=== PATIENT | female | born 1985 | race Hispanic/Latino ===

== ENCOUNTER 2022-09-27 17:56 | Emergency (ER) | payer OTHER ==
[2022-09-27 18:27] LABS: Urine Blood Trace-intact (Negative); Urine Glucose Negative (Negative); Urine Protein 1+ (Negative); Urine Specific Gravity >=1.030 (1.005-1.030)
[2022-09-27 18:44] LABS: Urine Bacteria None Seen /HPF (<20); Urine Mucus Slight /HPF (None Seen)
[2022-09-27 19:28] LABS: Absolute Lymphocytes (CBC) 2.4 K/uL (0.7-4.9); Hematocrit 38.2 % (36.0-45.0); Lymphocytes % 30.2 % (15.3-44.8); MCV 91.8 fL (80-100); RBC Red Blood Cell Count 4.16 M/uL (3.86-4.86)
--- NOTE | 2022-09-27 19:28 | RAD REPORT ---
EXAM DESCRIPTION: CT - Abdomen Pelvis W Contrast - 09/27/2022 7:10 pm CLINICAL HISTORY: Abdominal pain COMPARISON: none. TECHNIQUE: Computed axial tomography of the abdomen pelvis was obtained. 100 cc Isovue-300 was admin istered intravenously. Oral contrast was not requested which limits evaluation of bowel and appendix All CT scans are performed using dose optimization technique as appropriate and may include automated exposure control or mA/KV adjustment according to patient size. FINDINGS: Fatty liver. Spleen, pancreas, adrenal and kidneys appear unremarkable. There is no evidence of diverticulitis. Normal appendix. No adnexal mass. Tiny umbilical hernia Mild gastric distention IMPRESSION: Mild gastric distention
[2022-09-27 19:38] LABS: Albumin 3.8 g/dL (3.4-5.0); Bilirubin Total 0.8 mg/dL (0.2-1.0); Potassium 3.5 mmol/L (3.5-5.1); Protein, Total 7.5 g/dL (6.4-8.2)
--- NOTE | 2022-09-27 19:43 | EDPHYS ---
Physician Documentation [facility] Name: Marilu Gallegos Age: 36 yrs Sex: Female : 1985 Arrival Date: 09/27/2022 Time: 17:59 Bed IW2 Private MD: ED Physician Rebel Burgos HPI: 09/27 18:18 This 36 yrs old Female presents to ER via Ambulatory with complaints of rn dysuria, Pelvic Pain. 18:18 The patient presents with urinary symptoms, dysuria, frequency. Onset: The rn symptoms/episode began/occurred 4 day(s) ago. Modifying factors: The symptoms are alleviated by nothing, the symptoms are aggravated by urinating. Associated signs and symptoms: Pertinent positives: dysuria, Pertinent negatives: fever, hematuria, vaginal bleeding, vaginal discharge. Severity of symptoms: At their worst the symptoms were mild, in the emergency department the symptoms are unchanged. The patient has not experienced similar symptoms in the past. The patient has not recently seen a physician. Pt reports dysuria, began 4 days ago, no fever, + suprapubic abd pressure, worse with urination, no hx of kidney stones, no vaginal bleeding or discharge. NO trauma. Denies . . 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 - Social history:: Smoking status: Patient denies any tobacco usage or history of. - Family history:: not pertinent. - Hospitalizations: : No recent hospitalization is reported. ROS: 18:18 Constitutional: Negative for fever, chills, and weight loss, Eyes: Negative for injury, rn pain, redness, and discharge, Cardiovascular: Negative for chest pain, palpitations, and edema, Respiratory: Negative for shortness of breath, cough, wheezing, and pleuritic chest pain, Abdomen/GI: + suprapubic abd discomfort Back: Negative for injury and pain, : + dysuria MS/Extremity: Negative for injury and deformity, Skin: Negative for injury, rash, and discoloration, Neuro: Negative for headache, weakness, numbness, tingling, and seizure. Exam: 18:18 Constitutional: This is a well developed, well nourished patient who is awake, alert, rn and in no acute distress. Head/Face: Normocephalic, atraumatic. Cardiovascular: Regular rate and rhythm. No pulse deficits. Respiratory: No increased work of breathing, no retractions or nasal flaring. Abdomen/GI: soft, mild suprapubic tenderness, no RLQ or LLQ tenderness Skin: Warm, dry MS/ Extremity: Pulses equal, no cyanosis Neuro: Awake and alert, GCS 15 Vital Signs: 18:10 BP 116 / 80; Pulse 90; Resp 18; Temp 97.7; Pulse Ox 100% ; Weight 99.79 kg (R); Height ko1 5 ft. 6 in. (167.64 cm); 19:30 BP 123 / 68; Pulse 85; Resp 18; Temp 98; Pulse Ox 100% on R/A; Pain 4/10; pf1 18:10 Body Mass Index 35.51 (99.79 kg, 167.64 cm) ko1 MDM: 18:13 Patient medically screened. rn 18:29 Differential diagnosis: appendicitis, ectopic , endometriosis, kidney stone, rn nonspecific abdominal pain, ovarian cyst, urinary tract infection. ED course: UA obtained initially to try and confirm UTI given suprapubic pain and dysuria, was not convincing of UTI, micro sent, and added blood and CT to rule out other causes of acute lower abd pain. Explained further w/u to patient. . 19:40 Data reviewed: vital signs, nurses notes. Consideration of Admission/Observation jr11 Escalation of care including admission/observation considered. but pain control, no abdominal emergency identified on CT. I considered the following discharge prescriptions or medication management in the emergency department Pain Medications: At this time, prescription pain medications are not recommended. Independent interpretation of the following test(s) in the Emergency Department CT Scan: My interpretation is no free fluids or air . Care significantly affected by the following chronic conditions: Obesity. Care significantly affected by the following Social Determinants of Health: Poor access to healthcare and/or lack of insurance. 09/27 18:18 Order name: Urine Culture rn 09/27 18:18 Order name: Urine Microscopic Only; Complete Time: 19:06 rn 09/27 18:27 Order name: CBC with Diff; Complete Time: 19:40 rn 09/27 18:27 Order name: CMP; Complete Time: 19:40 rn 09/27 18:28 Order name: Urine --Ancillary (enter results) eb 09/27 18:28 Order name: Urine Dipstick-Ancillary; Complete Time: 19:06 EDMS 09/27 18:18 Order name: Urine Dipstick-Ancillary (obtain specimen); Complete Time: 18:32 rn 09/27 18:18 Order name: Urine Test (obtain specimen); Complete Time: 18:32 rn 09/27 18:27 Order name: CT Abd/Pelvis - IV Contrast Only; Complete Time: 19:32 rn 09/27 18:27 Order name: IV Saline Lock; Complete Time: 18:56 rn 09/27 18:27 Order name: Labs collected and sent; Complete Time: 18:56 rn 09/27 18:29 Order name: Urine --Ancillary; Complete Time: 19:06 EDMS 09/27 19:38 Order name: CREATININE WHOLE BLOOD; Complete Time: 19:40 EDMS Administered Medications: No medications were administered Disposition Summary: 09/27/22 19:42 Discharge Ordered Location: Home [facility] Condition: Stable [facility] Diagnosis - Abdominal pain, Generalized jr11 - UTI/ Urinary tract infection, site not specified jr Followup: jr - With: Caden Stuart DO - When: 2 - 3 days - Reason: Re-evaluation by your physician Discharge Instructions: - Discharge Summary Sheet jr11 - Urinary Tract Infection, Adult [facility] Forms: - Medication Reconciliation Form jr11 - Thank You Letter jr11 - Antibiotic Education jr11 - Prescription Opioid Use jr Prescriptions: - Cephalexin 500 mg Oral Capsule - take 1 capsule by ORAL route every 8 hours for 10 days; 30 capsule; Refills: 0, jr11 Product Selection Permitted - Pyridium 200 mg Oral Tablet - take 1 tablet by ORAL route every 8 hours for 3 days; 9 tablet; Refills: 0, jr11 Product Selection Permitted Signatures: Dispatcher [employer] EDTN Antony Antonio MD MD rn Rosillo, Jose, MD MD jr11 Anabelle Pabon, RN RN ko1
--- NOTE | 2022-09-27 19:43 | ER ---
Nurse's Notes [facility] Name: Marilu Gallegos Age: 36 yrs Sex: Female : 1985 Arrival Date: 09/27/2022 Time: 17:59 Bed IW2 Private MD: Diagnosis: Abdominal pain, Generalized;UTI/ Urinary tract infection, site not specified Presentation: 09/27 18:09 Chief complaint:. ko1 18:10 Chief complaint: Patient states: pain in abdomen and when peeing. Coronavirus screen: ko1 Vaccine status: Patient reports receiving the 2nd dose of the covid vaccine. At this time, the client does not indicate any symptoms associated with coronavirus-19. Ebola Screen: No symptoms or risks identified at this time. Initial Sepsis Screen: Does the patient meet any 2 criteria? No. Patient's initial sepsis screen is negative. Does the patient have a suspected source of infection? No. Patient's initial sepsis screen is negative. Risk Assessment: Do you want to hurt yourself or someone else? Patient reports no desire to harm self or others. Onset of symptoms was September 24, 2022 at 09:00. 18:10 Method Of Arrival: Ambulatory ko1 18:10 Acuity: AMEENA 3 ko1 Triage Assessment: 18:13 General: Appears in no apparent distress. distressed, comfortable, Behavior is calm, ko1 cooperative, appropriate for age. Pain: Complains of pain in suprapubic area. 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 - Social history:: Smoking status: Patient denies any tobacco usage or history of. - Family history:: not pertinent. - Hospitalizations: : No recent hospitalization is reported. Screenin:00 [facility] ED Fall Risk Assessment (Adult) History of falling in the last 3 months, pf1 including since admission No falls in past 3 months (0 pts) Confusion or Disorientation No (0 pts) Intoxicated or Sedated No (0 pts) Impaired Gait No (0 pts) Mobility Assist Device Used No (0 pt) Altered Elimination No (0 pt) Score/Fall Risk Level 0 - 2 = Low Risk Oriented to surroundings, Maintained a safe environment, Educated pt \T\ family on fall prevention, incl call for assistance when getting out of bed, Assessed \T\ reinforced patient's understanding of fall precautions, Provided non-skid footwear, Hourly rounding (assess needs \T\ fall precautionary measures) done, Used ambulatory aids as needed (educated on \T\ assisted with), Used gait belt as appropriate. 19:00 Abuse screen: Denies threats or abuse. Nutritional screening: No deficits noted. pf1 Tuberculosis screening: No symptoms or risk factors identified. Assessment: 19:00 General: Appears in no apparent distress. comfortable, obese, well groomed, well pf1 developed, Behavior is calm, cooperative, appropriate for age, quiet. 19:00 Pain: Complains of pain in suprapubic area Pain currently is 4 out of 10 on a pain pf1 scale. Pain began 4 days. Neuro: No deficits noted. Level of Consciousness is awake, alert, obeys commands, Oriented to person, place, time, situation. Cardiovascular: No deficits noted. Capillary refill < 3 seconds Patient's skin is warm and dry. Respiratory: No deficits noted. Airway is patent Trachea midline Respiratory effort is even, unlabored, Respiratory pattern is regular, symmetrical. GI: Abdomen is round non-distended, Bowel sounds present X 4 quads. Abd is soft and non tender X 4 quads. : Reports burning with urination, urinary frequency. EENT: No deficits noted. No signs and/or symptoms were reported regarding the EENT system. Derm: No deficits noted. No signs and/or symptoms reported regarding the dermatologic system. Musculoskeletal: No deficits noted. No signs and/or symptoms reported regarding the musculoskeletal system. Vital Signs: 18:10 BP 116 / 80; Pulse 90; Resp 18; Temp 97.7; Pulse Ox 100% ; Weight 99.79 kg (R); Height ko1 5 ft. 6 in. (167.64 cm); 19:30 BP 123 / 68; Pulse 85; Resp 18; Temp 98; Pulse Ox 100% on R/A; Pain 4/10; pf1 18:10 Body Mass Index 35.51 (99.79 kg, 167.64 cm) ko1 ED Course: 17:59 Patient arrived in ED. as 18:13 Antony Antonio MD is Attending Physician. rn 18:13 Triage completed. ko1 18:13 Arm band placed on left wrist. ko1 18:32 Urine --Ancillary (enter results) Sent. eb 18:32 Urine Culture Sent. eb 18:32 Urine Microscopic Only Sent. eb 18:55 Patient has correct armband on for positive identification. Adult w/ patient. mm9 18:55 Initial lab(s) drawn, by me, sent to lab. Urine collected: clean catch specimen, mm9 cloudy. Inserted saline lock: 20 gauge in right antecubital area, using aseptic technique. Blood collected. 18:56 CBC with Diff Sent. mm9 18:56 CMP Sent. mm9 18:56 Urine Culture Sent. mm9 19:00 Attending Physician role handed off by Antony Antonio MD jr11 19:00 Rebel Burgos MD is Attending Physician. jr11 19:00 No provider procedures requiring assistance completed. pf1 19:12 CT Abd/Pelvis - IV Contrast Only In Process Unspecified. EDNY 19:42 Caden Stuart DO is Referral Physician. jr11 19:50 IV discontinued, intact, bleeding controlled, No redness/swelling at site. Pressure pf1 dressing applied. Administered Medications: No medications were administered Medication: 19:50 VIS not applicable for this client. pf1 Outcome: 19:42 Discharge ordered by . jr11 19:52 Discharged to home ambulatory, with family. pf1 19:52 Condition: stable 19:52 Discharge instructions given to patient, Instructed on discharge instructions, follow up and referral plans. medication usage, Demonstrated understanding of instructions, follow-up care, medications, Prescriptions given X 2. 19:53 Patient left the ED. pf1 Signatures: Dispatcher [employer] [facility] Nat Gallegos as Antony Antonio MD MD rn Botello, Elizabeth eb Rosillo, Jose, MD MD jr11 Anabelle Pabon, SUMIT RN ko1 Gisela Gallegos 9 Tere hand RN RN pf1
[2022-09-27 20:24] VITALS: BP 116/80; TEMP 97.7; O2SAT 100
== END 2022-09-27 19:53 | disposition home or self-care (01) ==
LOC: ER 17:56
DX: N39.0 Urinary tract infection, site not specified (principal); R10.84 Generalized abdominal pain
CPT/HCPCS: 87088; 85025; 87086; 36415; 81025; 82565; 80053; 74177; 99284; Q9967; 81003; 81015